=== PATIENT | female | born 1960 | race Hispanic/Latino ===

== ENCOUNTER 2017-11-21 14:34 | Outpatient (CLI) | payer OTHER ==
[~2017-11-21 14:34] MED LIST: Gadobenate Dimeglumine 529 MG/1 ML (20ML VIAL) ONE
--- NOTE | 2017-11-21 16:28 | MRI ---
EXAM: BRAIN MRI WITH AND WITHOUT CONTRAST 11/21/17 HISTORY: Skin paresthesia. COMPARISON: None. TECHNIQUE: Brain MRI is performed with and without intravenous gadolinium administration. Multisequential, multi planar imaging is performed. FINDINGS: No hemorrhage on the axial gradient echo sequence. No parenchymal hemorrhage. No extra-axial hematoma . No parenchymal mass, mass effect or midline shift. Age appropriate brain volume. Cortical sanders-whit e matter differentiation is preserved. Ventricles and sulci are patent and symmetric. There are T2 and FLAIR white matter hyperintensities, minimal in overall distribution suggesting health professor brannon small vessel ischemic change. The calvarium has a normal T1 marrow signal intensity. Midline brain parenchymal structures are unrem arkable. There is bilateral maxillary sinus and ethmoidal mucosal thickening. Mastoid air cells are adequately aerated. No pathologic enhancement of the brain parenchyma. Note is made of a small enhancing meningioma along the right parafalcine region measuring 0.6 cm. IMPRESSION: 1. Unremarkable pre and postcontrast brain MRI. Paranasal sinus disease as above. 2. Absent restricted diffusion. No acute infract. 3. Minimal T2 and FLAIR white matter hyperintensities, nonspecific. POS: [facility]
== END 2017-11-21 14:35 | disposition home or self-care (01) ==
LOC: SCSMRI 14:34
PROVIDERS: ATTEND Psychiatry & Neurology Neurology
DX: R20.2 Paresthesia of skin (principal)
CPT/HCPCS: 70553; A9579

== ENCOUNTER 2018-02-01 14:57 | Outpatient (CLI) | payer OTHER | END 2018-02-01 14:58 | disposition home or self-care (01) | LOC: BICMAMMO 14:57 | PROVIDERS: ATTEND Family Medicine | DX: N64.4 Mastodynia (principal); N64.52 Nipple discharge | CPT/HCPCS: G0279 ==

== ENCOUNTER 2018-05-02 13:48 | Outpatient (CLI) | payer OTHER | END 2018-05-02 13:49 | disposition home or self-care (01) | LOC: DTY/OP 13:48 | PROVIDERS: ATTEND Family Medicine | DX: E11.65 Type 2 diabetes mellitus with hyperglycemia (principal); E66.01 Morbid (severe) obesity due to excess calories; E55.9 Vitamin D deficiency, unspecified; E53.8 Deficiency of other specified B group vitamins; Z68.41 Body mass index [BMI] 40.0-44.9, adult | CPT/HCPCS: 97802 ==

== ENCOUNTER 2019-02-13 15:57 | Outpatient (CLI) | payer OTHER ==
--- NOTE | 2019-02-13 16:49 | MMO ---
Bilateral MAMMO Bilat Screen [facility]. CLINICAL HISTORY: Patient is 58 years old and is seen for screening. The patient has no family history of breast cancer. The patient has no personal history of cancer. VIEWS: The views performed were: bilateral craniocaudal with tomosynthesis and bilateral mediolateral oblique with tomosynthesis. FILMS COMPARED: The present examination has been compared to prior imaging studies performed at [facility] on 06/02/2009 and 02/12/2018. MAMMOGRAM FINDINGS: The breasts are almost entirely fat. There are stable benign appearing calcifications seen in both breasts. There are no suspicious masses, suspicious calcifications, or new areas of architectural distortion. IMPRESSION: THERE IS NO MAMMOGRAPHIC EVIDENCE OF MALIGNANCY. A ROUTINE FOLLOW-UP MAMMOGRAM IN 1 YEAR IS RECOMMENDED. THE RESULTS OF THIS EXAM WERE SENT TO THE PATIENT. ACR BI-RADS Category 2 - Benign finding MAMMOGRAPHY NOTE: 1. A negative mammogram report should not delay a biopsy if a dominant of clinically suspicious mass is present. 2. Approximately 10% to 15% of breast cancers are not detected by mammography. 3. Adenosis and dense breasts may obscure an underlying neoplasm.
== END 2019-02-13 15:58 | disposition home or self-care (01) ==
LOC: BICMAMMO 15:57
PROVIDERS: ATTEND Family Medicine
DX: Z12.31 Encounter for screening mammogram for malignant neoplasm of breast (principal)
CPT/HCPCS: 77063; 77067

== ENCOUNTER 2019-03-27 09:51 | Outpatient (CLI) | payer OTHER ==
--- NOTE | 2019-03-27 11:45 | MRI ---
BRAIN MRI WITH AND WITHOUT CONTRAST: Date: 03/27/2019 COMPARISON: 11/21/2017. HISTORY: Headaches. TECHNIQUE: Multisequence multiplanar MR imaging of the brain is obtained with and without contrast. FINDINGS: The diffusion weighted imaging demonstrates no evidence for acute infarction. The axial gradient echo imaging demonstrates no evidence for intracranial hemorrhage. There are multiple subcentimeter scattered foci of increased T2 and FLAIR signal within the periventr icular, deep, and subcortical white matter, similar when compared to the prior examination, nonspecific in nature. Arterial flow voids at the axial level of the skull base appear grossly unremarkable on the T2-weight ed imaging. The imaged paranasal sinuses and mastoid air cells demonstrate normal signal intensity. There is an extra-axial oval midline anterior 7 mm focus demonstrating decreased signal on gradient e cho imaging and increased signal on pre and postcontrast T1-weighted imaging. This could represent a small calcification or small calcified meningioma. IMPRESSION: Incidental findings as detailed above. No acute findings are seen. Transcribed Date/Time: 03/27/2019 12:06 PM
== END 2019-03-27 09:52 | disposition home or self-care (01) ==
LOC: SCSMRI 09:51
PROVIDERS: ATTEND Nurse Practitioner Acute Care
DX: R20.2 Paresthesia of skin (principal); R51 Headache
CPT/HCPCS: 70553

== ENCOUNTER 2019-10-27 09:02 | Outpatient (CLI) | payer OTHER ==
--- NOTE | 2019-10-27 09:47 | ULT ---
EXAM: US Abdominal CLINICAL HISTORY: Right kidney disease. Right upper quadrant pain.. COMPARISON: None. FINDINGS: Pancreas: The head of pancreas has a normal echotexture. The remainder the pancreas is obscured by b owel gas IVC: Visualized IVC has a normal caliber. Aorta: Visualized aorta has a normal caliber. Liver:Increased echogenicity of liver may be due to hepatic steatosis or hepatocellular disease. Limi verona evaluation for hepatic masses and intrahepatic biliary dilatation. Right hepatic lobe measures 16.3 cm. Gallbladder: Surgically absent Henry's sign:Not applicable CBD: Common bile diameter 0.7 cm Portal vein: Patent. Appropriate directional flow. Right kidney: Normal cortical echotexture. No hydronephrosis. Right kidney measuring 10.9 x 4.8 x 5. 7 cm in length. Left kidney: Normal cortical echotexture. No hydronephrosis . Left kidney measuring 10.5 x 4.8 x 5.0 cm in length Spleen: Normal echotexture IMPRESSION: 1. Increased echogenicity liver may be due to hepatic steatosis or hepatocellular disease. If there i s concern for hepatic masses, consider liver mass protocol CT or an abdomen MRI
== END 2019-10-27 09:03 | disposition home or self-care (01) ==
LOC: BICULT 09:02
PROVIDERS: ATTEND Family Medicine
DX: N18.3 Chronic kidney disease, stage 3 (moderate) (principal); R10.11 Right upper quadrant pain; R80.9 Proteinuria, unspecified; R93.2 Abnormal findings on diagnostic imaging of liver and biliary tract
CPT/HCPCS: 93975

== ENCOUNTER 2020-02-20 10:02 | Outpatient (CLI) | payer OTHER ==
--- NOTE | 2020-02-20 15:57 | MMO ---
Bilateral MAMMO Bilat Screen [facility]. CLINICAL HISTORY: Patient is 59 years old and is seen for screening. The patient has no family history of breast cancer. The patient has no personal history of cancer. VIEWS: The views performed were: bilateral craniocaudal with tomosynthesis; bilateral mediolateral oblique with tomosynthesis; and bilateral exaggerated craniocaudal. FILMS COMPARED: The present examination has been compared to prior imaging studies performed at [facility] on 06/02/2009, 02/12/2018 and 02/13/2019, and at [facility] on 04/11/2017. This study has been interpreted with the assistance of computer-aided detection. MAMMOGRAM FINDINGS: The breasts are almost entirely fat. There are stable benign appearing calcifications seen in both breasts. There are no suspicious masses, suspicious calcifications, or new areas of architectural distortion. IMPRESSION: THERE IS NO MAMMOGRAPHIC EVIDENCE OF MALIGNANCY. A ROUTINE FOLLOW-UP MAMMOGRAM IN 1 YEAR IS RECOMMENDED. THE RESULTS OF THIS EXAM WERE SENT TO THE PATIENT. ACR BI-RADS Category 2 - Benign finding MAMMOGRAPHY NOTE: 1. A negative mammogram report should not delay a biopsy if a dominant of clinically suspicious mass is present. 2. Approximately 10% to 15% of breast cancers are not detected by mammography. 3. Adenosis and dense breasts may obscure an underlying neoplasm. Reported by: CHARLES WARNER MD Electonically Signed: [id number]
== END 2020-02-20 10:03 | disposition home or self-care (01) ==
LOC: BICMAMMO 10:02
PROVIDERS: ATTEND Family Medicine
DX: Z12.31 Encounter for screening mammogram for malignant neoplasm of breast (principal)
CPT/HCPCS: 77063; 77067

== ENCOUNTER 2020-11-02 08:36 | Outpatient (CLI) | payer OTHER ==
--- NOTE | 2020-11-02 10:37 | ULT ---
LEFT BREAST ULTRASOUND: HISTORY: Palpable abnormality of the left breast at the 10 o'clock position. FINDINGS: Real-time imaging of this area after the patient pointed to the area of a palpable finding does not show any cystic or solid mass. IMPRESSION: Unremarkable left breast ultrasound. POS: OFF
== END 2020-11-02 08:37 | disposition home or self-care (01) ==
LOC: BICMAMMO 08:36
PROVIDERS: ATTEND Family Medicine
DX: N63.20 Unspecified lump in the left breast, unspecified quadrant (principal)

== ENCOUNTER → 2020-11-02 | Outpatient (CLI) | payer OTHER | LOC: BICMAMMO 12:38 | PROVIDERS: ATTEND Family Medicine | DX: N63.20 Unspecified lump in the left breast, unspecified quadrant (principal) | CPT/HCPCS: G0279 ==

== ENCOUNTER 2021-01-21 13:00 | Outpatient (CLI) | payer OTHER | END 2021-01-21 13:01 | disposition home or self-care (01) | LOC: BICRAD 13:00 | PROVIDERS: ATTEND Family Medicine | DX: M25.561 Pain in right knee (principal) ==

== ENCOUNTER 2022-06-06 08:51 | Outpatient (CLI) | payer OTHER | END 2022-06-06 08:52 | disposition home or self-care (01) | LOC: BICMAMMO 08:51 | PROVIDERS: ATTEND Family Medicine | DX: Z12.31 Encounter for screening mammogram for malignant neoplasm of breast (principal); Z80.3 Family history of malignant neoplasm of breast; N63.20 Unspecified lump in the left breast, unspecified quadrant | CPT/HCPCS: 77063; 77067 ==

== ENCOUNTER 2022-06-15 10:07 | Outpatient (CLI) | payer OTHER | END 2022-06-15 10:08 | disposition home or self-care (01) | LOC: BICMAMMO 10:07 | PROVIDERS: ATTEND Family Medicine | DX: N63.25 Unspecified lump in the left breast, overlapping quadrants (principal) | CPT/HCPCS: G0279 ==

== ENCOUNTER 2023-07-26 08:38 | Outpatient (CLI) | payer OTHER | END 2023-07-26 08:39 | disposition home or self-care (01) | LOC: BICMAMMO 08:38 | PROVIDERS: ATTEND Nurse Practitioner Family | DX: Z12.31 Encounter for screening mammogram for malignant neoplasm of breast (principal); Z80.3 Family history of malignant neoplasm of breast | CPT/HCPCS: 77063; 77067 ==

== ENCOUNTER 2023-08-19 10:28 | Emergency (ER) | payer OTHER ==
[2023-08-19] MEDS ORDERED: Ketorolac Tromethamine 30 MG/ML VIAL ONE (11:04)
== END 2023-08-19 11:32 | disposition home or self-care (01) ==
LOC: ERS 10:28
DX: M79.671 Pain in right foot (principal); E11.9 Type 2 diabetes mellitus without complications; I10 Essential (primary) hypertension; E78.5 Hyperlipidemia, unspecified; Z79.899 Other long term (current) drug therapy; Z79.82 Long term (current) use of aspirin; Z79.4 Long term (current) use of insulin; Z79.85 Long-term (current) use of injectable non-insulin antidiabetic drugs
CPT/HCPCS: 96372; J1885

== ENCOUNTER 2023-12-26 11:13 | Inpatient (IN) | payer OTHER ==
[2023-12-26 11:35] LABS: #Basophils 0.03 10x3/uL (0.0-0.2); %Basophils 0.3 % (0.0-1.0); %Eosinophils 2.5 % (0.0-10.0); %Lymphocytes 14.6 % (21.0-51.0); %Monocytes 12.6 % (0.0-10.0); %Neutrophils 69.6 % (42.0-75.0); Hematocrit 29.2 % (36.0-47.0); Hemoglobin 9.7 g/dL (12.0-16.0); Mean Corpuscular HGB CONC 33.2 g/dL (32.0-36.0); Mean Corpuscular Volume 87.4 fL (78.0-98.0); Mean Platelet Volume 10.6 fL (7.4-10.4); Platelet Count 193 10x3/uL (130-400); RBC Distribution Width 14.7 % (11.5-14.5); Red Blood Cell (RBC) Count 3.34 mill/uL (4.20-5.40)
[2023-12-26 12:14] LABS: Anion Gap 13 mmol/L (10-20); Globulin 4.1 g/dL (2.4-3.5)
[2023-12-26 12:19] LABS: ALT (SGPT) 27 U/L (8-55); AST (SGOT) 18 U/L (5-34); Albumin 2.7 g/dL (3.4-4.8); Alkaline Phosphatase 86 U/L (40-110); BUN (Urea Nitrogen) 95 mg/dL (9.8-20.1); Bilirubin, Total 0.5 mg/dL (0.2-1.2); Calc. Creatinine Clearance 0 mL/min (70-130); Calcium 8.8 mg/dL (7.8-10.44); Carbon Dioxide 21 mmol/L (23-31); Chloride 106 mmol/L (98-107); Estimated GFR 18; Glucose 102 mg/dL (80-115); Magnesium 2.4 mg/dL (1.6-2.6); Potassium 4.3 mmol/L (3.5-5.1); Protein, Total 6.8 g/dL (5.8-8.1); Sodium 136 mmol/L (136-145)
[2023-12-26 12:33] LABS: Troponin I 0.044 ng/mL (< 0.028)
[2023-12-26] MEDS ORDERED: Furosemide 40 MG (4 mL) VIAL ONE (12:57)
[2023-12-26] MEDS ORDERED: Enoxaparin 30 MG (0.3 mL) SYRINGE ONE (12:57)
[2023-12-26] MEDS ORDERED: Nitroglycerin 2% Ointment 1 INCH/1 GM Packet ONE (12:57)
[2023-12-26] MEDS ORDERED: Enoxaparin 100 MG (1 mL) SYRINGE ONE (12:57)
[2023-12-26] MEDS ORDERED: Dextrose 50% Abboject 50 ML SYRINGE SLOW IVP PRN (13:30)
[2023-12-26] MEDS ORDERED: Dextrose 5% in Water 1,000 ML IV PRN (13:30)
[2023-12-26] MEDS ORDERED: Glucagon 1 MG/ML KIT IM PRN (13:30)
[2023-12-26] MEDS: Acetaminophen 325 MG TAB PO PRN (16:24)
[2023-12-26] MEDS: Gabapentin 300 MG CAP PO SCH (21:11)
[2023-12-26] MEDS: Atorvastatin Calcium 40 MG TAB PO SCH (21:11)
[2023-12-26] MEDS: Nortriptyline 10 MG CAP PO SCH (21:11)
[2023-12-26] MEDS: Insulin Glargine 30 UNITS/0.3 ML VIAL SC SCH (21:12)
[2023-12-27 06:55] LABS: #Basophils Less than 0.03 10x3/uL (0.0-0.2); %Basophils 0.3 % (0.0-1.0); %Eosinophils 4.6 % (0.0-10.0); %Lymphocytes 17.2 % (21.0-51.0); %Monocytes 13.1 % (0.0-10.0); %Neutrophils 64.5 % (42.0-75.0); Hemoglobin 8.4 g/dL (12.0-16.0); Mean Corpuscular HGB CONC 32.3 g/dL (32.0-36.0); Mean Corpuscular Hemoglobin 29.3 pg (27.0-31.0); Mean Corpuscular Volume 90.6 fL (78.0-98.0); Mean Platelet Volume 10.7 fL (7.4-10.4); Platelet Count 183 10x3/uL (130-400); RBC Distribution Width 14.6 % (11.5-14.5); Red Blood Cell (RBC) Count 2.87 mill/uL (4.20-5.40)
[2023-12-27 07:10] LABS: Anion Gap 14 mmol/L (10-20)
[2023-12-27 07:13] LABS: BUN (Urea Nitrogen) 91 mg/dL (9.8-20.1); Calc. Creatinine Clearance 39 mL/min (70-130); Calcium 8.7 mg/dL (7.8-10.44); Carbon Dioxide 21 mmol/L (23-31); Chloride 109 mmol/L (98-107); Estimated GFR 17; Glucose 74 mg/dL (80-115); Potassium 4.5 mmol/L (3.5-5.1); Sodium 139 mmol/L (136-145)
[2023-12-27] MEDS: Allopurinol 100 MG TAB PO SCH (08:15)
[2023-12-27] MEDS: Ferrous Sulfate 325 MG TAB PO SCH (08:16)
[2023-12-27] MEDS: Famotidine 20 MG TAB PO SCH (08:16)
[2023-12-27] MEDS: Aspirin 81 mg Enteric Coated Tablet PO SCH (08:16)
[2023-12-27] MEDS: Cholecalciferol 1,000 UNITS (25 MCG) TAB PO SCH (08:16)
[2023-12-27] MEDS: Lisinopril 20 MG TAB PO SCH (08:17)
[2023-12-27] MEDS: Empagliflozin 25 MG TAB PO SCH (08:17)
[2023-12-27] MEDS: Furosemide 40 MG (4 mL) VIAL SLOW IVP SCH (08:17)
[2023-12-27 11:27] LABS: Hematocrit 26.6 % (36.0-47.0); Hemoglobin 8.8 g/dL (12.0-16.0); Platelet Count 186 10x3/uL (130-400)
[2023-12-27 12:02] LABS: Troponin I 0.036 ng/mL (< 0.028)
[2023-12-27] MEDS: Heparin 10,000 UNITS/ 10 ML VIAL SLOW IVP SCH (12:26)
[2023-12-27] MEDS: Heparin 25,000 units/D5W 500 ML IVPB SCH (12:28)
[2023-12-27] MEDS: HumaLOG 300 UNITS/3 ML VIAL SC PRN (12:55)
[2023-12-27 21:42] LABS: PTT Greater than 250.0 sec (22.9-36.1)
[2023-12-28 04:26] LABS: #Basophils 0.03 10x3/uL (0.0-0.2); %Basophils 0.4 % (0.0-1.0); %Eosinophils 3.5 % (0.0-10.0); %Lymphocytes 20.3 % (21.0-51.0); %Monocytes 12.1 % (0.0-10.0); %Neutrophils 63.3 % (42.0-75.0); Hematocrit 25.2 % (36.0-47.0); Hemoglobin 8.5 g/dL (12.0-16.0); Mean Corpuscular HGB CONC 33.7 g/dL (32.0-36.0); Mean Corpuscular Hemoglobin 29.6 pg (27.0-31.0); Mean Corpuscular Volume 87.8 fL (78.0-98.0); Mean Platelet Volume 10.3 fL (7.4-10.4); Platelet Count 175 10x3/uL (130-400); RBC Distribution Width 14.4 % (11.5-14.5); Red Blood Cell (RBC) Count 2.87 mill/uL (4.20-5.40)
[2023-12-28 04:46] LABS: Anion Gap 13 mmol/L (10-20)
[2023-12-28 04:49] LABS: BUN (Urea Nitrogen) 85 mg/dL (9.8-20.1); Calc. Creatinine Clearance 40 mL/min (70-130); Calcium 8.6 mg/dL (7.8-10.44); Carbon Dioxide 23 mmol/L (23-31); Chloride 108 mmol/L (98-107); Estimated GFR 18; Glucose 100 mg/dL (80-115); Potassium 4.3 mmol/L (3.5-5.1); Sodium 140 mmol/L (136-145)
[2023-12-28] MEDS: Ipratropium/Albuterol 3 ML NEB NEB SCH (15:05)
[2023-12-28 17:03] LABS: Albumin 2.5 g/dL (3.4-4.8); Globulin 3.7 g/dL (2.4-3.5); Protein, Total 6.2 g/dL (5.8-8.1)
[2023-12-28 18:22] LABS: Bilirubin Negative (Negative); Blood, Urine 2+ (Negative); Clarity Turbid (Clear); Glucose, Urine (Dipstick) 300 mg/dL (Negative); Ketone, Urine Negative (Negative); Leukocyte 25 Leu/uL (Negative); Nitrite Negative (Negative); Protein, Urine (Dipstick) 300 mg/dL (Neg-Trace); Urobilinogen Normal mg/dL (Less than 2); pH, Urine 5.5 (5.0-9.0)
[2023-12-28 18:25] LABS: Bacteria/HPF 1+ HPF (None Seen)
[2023-12-28 18:36] LABS: Creatinine, Urine 41.44 mg/dL (47-110)
[2023-12-29 06:13] LABS: Anion Gap 14 mmol/L (10-20)
[2023-12-29 06:16] LABS: BUN (Urea Nitrogen) 83 mg/dL (9.8-20.1); Calc. Creatinine Clearance 37 mL/min (70-130); Calcium 8.8 mg/dL (7.8-10.44); Carbon Dioxide 24 mmol/L (23-31); Chloride 109 mmol/L (98-107); Estimated GFR 16; Glucose 113 mg/dL (80-115); Potassium 4.5 mmol/L (3.5-5.1); Sodium 142 mmol/L (136-145)
[2023-12-29] MEDS: methylPREDNISolone Sod Succ/PF 125 MG/2 ML VIAL IVP SCH (13:25)
[2023-12-29] MEDS: Ipratropium/Albuterol 3 ML NEB NEB PRN (15:29)
[2023-12-30 06:19] LABS: Anion Gap 16 mmol/L (10-20)
[2023-12-30 06:21] LABS: BUN (Urea Nitrogen) 90 mg/dL (9.8-20.1); Calc. Creatinine Clearance 34 mL/min (70-130); Calcium 8.6 mg/dL (7.8-10.44); Carbon Dioxide 22 mmol/L (23-31); Chloride 107 mmol/L (98-107); Estimated GFR 15; Glucose 257 mg/dL (80-115); Potassium 4.5 mmol/L (3.5-5.1); Sodium 140 mmol/L (136-145)
[2023-12-30] MEDS: Albumin 25% 25 GM (100 mL) BOT IVPB SCH ×2 (09:30→16:06)
[2023-12-30] MEDS: Polyethylene Glycol 3350 17 GM Packet PO PRN (09:35)
[2023-12-31 05:12] LABS: Anion Gap 17 mmol/L (10-20)
[2023-12-31 05:15] LABS: BUN (Urea Nitrogen) 103 mg/dL (9.8-20.1); Calc. Creatinine Clearance 35 mL/min (70-130); Calcium 8.9 mg/dL (7.8-10.44); Carbon Dioxide 23 mmol/L (23-31); Chloride 106 mmol/L (98-107); Estimated GFR 16; Glucose 158 mg/dL (80-115); Potassium 4.2 mmol/L (3.5-5.1); Sodium 142 mmol/L (136-145)
[2023-12-31] MEDS: Furosemide 40 MG TAB PO SCH (09:44)
[2023-12-31 12:39] LABS: Bacteria/HPF 2+ HPF (None Seen); Bilirubin Negative (Negative); Blood, Urine 2+ (Negative); Clarity Turbid (Clear); Glucose, Urine (Dipstick) 300 mg/dL (Negative); Ketone, Urine Negative (Negative); Leukocyte 25 Leu/uL (Negative); Nitrite Negative (Negative); Protein, Urine (Dipstick) 300 mg/dL (Neg-Trace); Specific Gravity, Urine 1.018 (1.002-1.036); Urobilinogen Normal mg/dL (Less than 2)
[2023-12-31 13:18] LABS: Creatinine, Urine 84.92 mg/dL (47-110)
[2023-12-31] MEDS: hydrALAZINE 20 MG/ML VIAL SLOW IVP SCH (17:59)
[2023-12-31] MEDS: NIFEdipine XL 60 MG ER.TAB PO SCH (21:14)
[2024-01-01 04:37] LABS: Anion Gap 16 mmol/L (10-20)
[2024-01-01 04:40] LABS: BUN (Urea Nitrogen) 106 mg/dL (9.8-20.1); Calc. Creatinine Clearance 34 mL/min (70-130); Calcium 8.7 mg/dL (7.8-10.44); Carbon Dioxide 24 mmol/L (23-31); Chloride 107 mmol/L (98-107); Estimated GFR 15; Glucose 133 mg/dL (80-115); Potassium 4.2 mmol/L (3.5-5.1); Sodium 143 mmol/L (136-145)
[2024-01-01 12:15] LABS: ANA Symphony (Qualitative) Negative (Negative); ANA Symphony (Quantitative) 0.2 Ratio (< 0.7 Negative); CCP IgG Antibody 0.8 EliAU/mL (<7 Negative); Rheumatoid Factor IgM Antibody 0.8 IU/mL (<3.5 Negative); dsDNA IgG Antibody 1.1 IU/mL (<10 Negative)
[2024-01-01] MEDS: Cefepime 1 GM in Sodium Chloride 0.9% 100 ML IVPB SCH (12:15)
[2024-01-01] MEDS: metroNIDAZOLE 500 MG TAB PO SCH (16:37)
[2024-01-01] MEDS: Ondansetron PF 4 MG/2 ML Vial IVP PRN (23:31)
[2024-01-02 05:46] LABS: Hematocrit 25.5 % (36.0-47.0); Hemoglobin 7.9 g/dL (12.0-16.0); Mean Corpuscular Hemoglobin 28.5 pg (27.0-31.0); Mean Corpuscular Volume 92.1 fL (78.0-98.0); Mean Platelet Volume 10.9 fL (7.4-10.4); Platelet Count 260 10x3/uL (130-400); Red Blood Cell (RBC) Count 2.77 mill/uL (4.20-5.40)
[2024-01-02 06:04] LABS: Anion Gap 17 mmol/L (10-20)
[2024-01-02 06:06] LABS: BUN (Urea Nitrogen) 120 mg/dL (9.8-20.1); Calc. Creatinine Clearance 25 mL/min (70-130); Calcium 8.7 mg/dL (7.8-10.44); Carbon Dioxide 24 mmol/L (23-31); Chloride 106 mmol/L (98-107); Estimated GFR 10; Glucose 181 mg/dL (80-115); Potassium 4.7 mmol/L (3.5-5.1); Sodium 142 mmol/L (136-145)
[2024-01-02] MEDS: Famotidine 20 MG TAB PO SCH (08:22)
[2024-01-02 15:14] LABS: Cytoplasmic (C-ANCA) <1:20 titer (Neg:<1:20); Perinuclear (P-ANCA) <1:20 titer (Neg:<1:20)
[2024-01-02] MEDS: Docusate 100 MG CAP PO PRN (20:46)
[2024-01-03 05:29] LABS: #Basophils 0.03 10x3/uL (0.0-0.2); %Basophils 0.4 % (0.0-1.0); %Eosinophils 6.5 % (0.0-10.0); %Lymphocytes 19.6 % (21.0-51.0); %Monocytes 9.3 % (0.0-10.0); %Neutrophils 63.9 % (42.0-75.0); Hematocrit 24.3 % (36.0-47.0); Hemoglobin 7.7 g/dL (12.0-16.0); Mean Corpuscular HGB CONC 31.7 g/dL (32.0-36.0); Mean Corpuscular Hemoglobin 29.2 pg (27.0-31.0); Mean Platelet Volume 10.8 fL (7.4-10.4); Platelet Count 288 10x3/uL (130-400); RBC Distribution Width 14.9 % (11.5-14.5); Red Blood Cell (RBC) Count 2.64 mill/uL (4.20-5.40)
[2024-01-03 05:54] LABS: Anion Gap 19 mmol/L (10-20)
[2024-01-03 05:56] LABS: BUN (Urea Nitrogen) 122 mg/dL (9.8-20.1); Calc. Creatinine Clearance 21 mL/min (70-130); Calcium 9.1 mg/dL (7.8-10.44); Carbon Dioxide 22 mmol/L (23-31); Chloride 107 mmol/L (98-107); Estimated GFR 8; Glucose 178 mg/dL (80-115); Potassium 4.9 mmol/L (3.5-5.1); Sodium 143 mmol/L (136-145)
[2024-01-03] MEDS: EPOETIN ALFA-EPBX (ESRD) 10,000 UNITS/ML VIAL SC SCH (10:30)
[2024-01-04 05:29] LABS: #Basophils Less than 0.03 10x3/uL (0.0-0.2); %Basophils 0.3 % (0.0-1.0); %Eosinophils 5.9 % (0.0-10.0); %Monocytes 10.2 % (0.0-10.0); %Neutrophils 65.2 % (42.0-75.0); Hematocrit 24.9 % (36.0-47.0); Hemoglobin 7.7 g/dL (12.0-16.0); Mean Corpuscular HGB CONC 30.9 g/dL (32.0-36.0); Mean Corpuscular Volume 90.5 fL (78.0-98.0); Mean Platelet Volume 11.2 fL (7.4-10.4); Platelet Count 328 10x3/uL (130-400); RBC Distribution Width 14.9 % (11.5-14.5); Red Blood Cell (RBC) Count 2.75 mill/uL (4.20-5.40)
[2024-01-04 05:43] LABS: Anion Gap 17 mmol/L (10-20)
[2024-01-04 06:09] LABS: BUN (Urea Nitrogen) 121 mg/dL (9.8-20.1); Calc. Creatinine Clearance 21 mL/min (70-130); Carbon Dioxide 22 mmol/L (23-31); Chloride 107 mmol/L (98-107); Estimated GFR 8; Glucose 211 mg/dL (80-115); Potassium 4.8 mmol/L (3.5-5.1); Sodium 141 mmol/L (136-145)
[2024-01-04] MEDS: Tuberculin PPD 0.1 ML SYRINGE (10 TEST VIAL) I-DERMAL SCH (21:44)
[2024-01-05 05:42] LABS: #Basophils 0.03 10x3/uL (0.0-0.2); %Basophils 0.4 % (0.0-1.0); %Eosinophils 6.3 % (0.0-10.0); %Lymphocytes 15.5 % (21.0-51.0); %Monocytes 10.4 % (0.0-10.0); %Neutrophils 66.8 % (42.0-75.0); Hematocrit 25.2 % (36.0-47.0); Hemoglobin 7.9 g/dL (12.0-16.0); Mean Corpuscular HGB CONC 31.3 g/dL (32.0-36.0); Mean Corpuscular Hemoglobin 29.3 pg (27.0-31.0); Mean Corpuscular Volume 93.3 fL (78.0-98.0); Mean Platelet Volume 10.8 fL (7.4-10.4); Platelet Count 365 10x3/uL (130-400); RBC Distribution Width 15.1 % (11.5-14.5)
[2024-01-05 05:58] LABS: Anion Gap 20 mmol/L (10-20)
[2024-01-05 06:07] LABS: Calc. Creatinine Clearance 23 mL/min (70-130); Calcium 8.9 mg/dL (7.8-10.44); Carbon Dioxide 20 mmol/L (23-31); Chloride 107 mmol/L (98-107); Estimated GFR 9; Glucose 165 mg/dL (80-115); Potassium 4.6 mmol/L (3.5-5.1); Sodium 142 mmol/L (136-145)
[2024-01-05 06:10] LABS: BUN (Urea Nitrogen) 129 mg/dL (9.8-20.1)
[2024-01-05 07:18] LABS: Hep B Surface AG-Rflx Sendout Negative (Negative); Hepatitis B Core Total Negative (Negative); Hepatitis B Surface AB-Sendout Reactive (.)
[2024-01-05] MEDS ORDERED: Heparin 10,000 UNITS/ 10 ML VIAL ONE (08:12)
[2024-01-05] MEDS: Morphine 2 MG/ML VIAL SLOW IVP SCH (20:28)
[2024-01-06 06:21] LABS: #Basophils Less than 0.03 10x3/uL (0.0-0.2); %Basophils 0.3 % (0.0-1.0); %Eosinophils 6.2 % (0.0-10.0); %Lymphocytes 16.6 % (21.0-51.0); %Monocytes 11.9 % (0.0-10.0); %Neutrophils 64.2 % (42.0-75.0); Hematocrit 24.1 % (36.0-47.0); Hemoglobin 7.6 g/dL (12.0-16.0); Mean Corpuscular HGB CONC 31.5 g/dL (32.0-36.0); Mean Platelet Volume 9.9 fL (7.4-10.4); Platelet Count 384 10x3/uL (130-400); RBC Distribution Width 15.5 % (11.5-14.5); Red Blood Cell (RBC) Count 2.62 mill/uL (4.20-5.40)
[2024-01-06 07:00] LABS: Anion Gap 17 mmol/L (10-20)
[2024-01-06 07:03] LABS: BUN (Urea Nitrogen) 110 mg/dL (9.8-20.1); Calc. Creatinine Clearance 27 mL/min (70-130); Calcium 8.8 mg/dL (7.8-10.44); Carbon Dioxide 21 mmol/L (23-31); Chloride 108 mmol/L (98-107); Estimated GFR 11; Glucose 116 mg/dL (80-115); Potassium 4.3 mmol/L (3.5-5.1); Sodium 142 mmol/L (136-145)
[2024-01-06] MEDS ORDERED: Heparin 10,000 UNITS/ 10 ML VIAL ONE (08:10)
[2024-01-06] MEDS: Polyethylene Glycol 3350 17 GM Packet PO PRN (13:50)
[2024-01-06] MEDS ORDERED: Glycerin Adult Supp. (24 ct jar) PR PRN (15:20)
[2024-01-06] MEDS: Polyethylene Glycol 3350 17 GM Packet PO SCH (15:34)
[2024-01-07 06:36] LABS: #Basophils 0.03 10x3/uL (0.0-0.2); %Basophils 0.4 % (0.0-1.0); %Eosinophils 6.3 % (0.0-10.0); %Lymphocytes 17.3 % (21.0-51.0); %Monocytes 13.7 % (0.0-10.0); %Neutrophils 60.8 % (42.0-75.0); Hemoglobin 8.3 g/dL (12.0-16.0); Mean Corpuscular HGB CONC 31.9 g/dL (32.0-36.0); Mean Corpuscular Hemoglobin 28.5 pg (27.0-31.0); Mean Corpuscular Volume 89.3 fL (78.0-98.0); Mean Platelet Volume 9.5 fL (7.4-10.4); Platelet Count 405 10x3/uL (130-400); RBC Distribution Width 15.6 % (11.5-14.5); Red Blood Cell (RBC) Count 2.91 mill/uL (4.20-5.40)
[2024-01-07 06:48] LABS: Anion Gap 13 mmol/L (10-20)
[2024-01-07 06:51] LABS: BUN (Urea Nitrogen) 65 mg/dL (9.8-20.1); Calc. Creatinine Clearance 38 mL/min (70-130); Calcium 8.8 mg/dL (7.8-10.44); Carbon Dioxide 26 mmol/L (23-31); Chloride 106 mmol/L (98-107); Estimated GFR 17; Glucose 120 mg/dL (80-115); Potassium 4.2 mmol/L (3.5-5.1); Sodium 141 mmol/L (136-145)
[2024-01-07] MEDS ORDERED: Heparin 10,000 UNITS/ 10 ML VIAL ONE ×2 (11:12→14:42)
[2024-01-07] MEDS ORDERED: Cefepime 1 GM VIAL ONE (12:00)
[2024-01-07] MEDS ORDERED: Sodium Chloride 0.9% 100 ML ONE (12:00)
[2024-01-07] MEDS ORDERED: Lidocaine 2% PF 5 ML VIAL ONE (14:42)
[2024-01-07] MEDS ORDERED: EPINEPHrine 1 MG/ML VIAL ONE (14:42)
[2024-01-07] MEDS ORDERED: Bupivacaine PF 0.5% 30 ML VIAL ONE (14:43)
[2024-01-07] MEDS ORDERED: Ketamine In 0.9 % NaCl 50 MG/5 ML SYRINGE ONE (15:26)
[2024-01-07] MEDS ORDERED: Midazolam HCl 2 mg/2 ml Vial ONE (15:26)
[2024-01-07] MEDS: Polyethylene Glycol 3350 17 GM Packet PO SCH (16:28)
[2024-01-07] MEDS: READ PPD TEST SITE PO SCH (16:28)
[2024-01-08 00:34] LABS: HBSAB Concentration 25.97 mIU/mL; Hep B Core Total Ab NONREACTIVE (NonReactive); Hep B Core Total Index 0.23 S/CO (0-0.79); Hep B Surf AB REACTIVE (NonReactive); Hep B Surf Ag NONREACTIVE S/CO (NonReactive); Hep C IgG Ab NONREACTIVE S/CO (NonReactive); Hep C Index 0.11 S/CO (0-0.79)
[2024-01-08 06:52] LABS: #Basophils 0.03 10x3/uL (0.0-0.2); %Basophils 0.4 % (0.0-1.0); %Eosinophils 3.7 % (0.0-10.0); %Monocytes 12.1 % (0.0-10.0); %Neutrophils 66.5 % (42.0-75.0); Hematocrit 25.6 % (36.0-47.0); Hemoglobin 8.2 g/dL (12.0-16.0); Mean Corpuscular Hemoglobin 29.3 pg (27.0-31.0); Mean Corpuscular Volume 91.4 fL (78.0-98.0); Mean Platelet Volume 9.9 fL (7.4-10.4); Platelet Count 431 10x3/uL (130-400); RBC Distribution Width 15.7 % (11.5-14.5)
[2024-01-08 07:04] LABS: Anion Gap 11 mmol/L (10-20)
[2024-01-08 07:06] LABS: BUN (Urea Nitrogen) 34 mg/dL (9.8-20.1); Calc. Creatinine Clearance 50 mL/min (70-130); Calcium 8.6 mg/dL (7.8-10.44); Carbon Dioxide 27 mmol/L (23-31); Chloride 101 mmol/L (98-107); Estimated GFR 24; Glucose 102 mg/dL (80-115); Potassium 3.6 mmol/L (3.5-5.1); Sodium 135 mmol/L (136-145)
[2024-01-08] MEDS ORDERED: Heparin 10,000 UNITS/ 10 ML VIAL ONE (11:05)
[2024-01-08] MEDS: NIFEdipine XL 60 MG ER.TAB PO SCH (13:21)
[2024-01-08] MEDS: Cefdinir 300 MG CAP PO SCH (21:15)
[2024-01-09 03:53] LABS: #Basophils 0.04 10x3/uL (0.0-0.2); %Basophils 0.5 % (0.0-1.0); %Eosinophils 3.7 % (0.0-10.0); %Lymphocytes 17.3 % (21.0-51.0); %Monocytes 14.3 % (0.0-10.0); %Neutrophils 62.3 % (42.0-75.0); Hematocrit 26.7 % (36.0-47.0); Hemoglobin 8.4 g/dL (12.0-16.0); Mean Corpuscular HGB CONC 31.5 g/dL (32.0-36.0); Mean Corpuscular Volume 92.1 fL (78.0-98.0); Mean Platelet Volume 9.8 fL (7.4-10.4); Platelet Count 426 10x3/uL (130-400); RBC Distribution Width 15.7 % (11.5-14.5)
[2024-01-09 04:08] LABS: Anion Gap 12 mmol/L (10-20); BUN (Urea Nitrogen) 17 mg/dL (9.8-20.1); Calc. Creatinine Clearance 58 mL/min (70-130); Calcium 8.7 mg/dL (7.8-10.44); Carbon Dioxide 28 mmol/L (23-31); Chloride 100 mmol/L (98-107); Estimated GFR 28; Glucose 106 mg/dL (80-115); Potassium 3.7 mmol/L (3.5-5.1); Sodium 136 mmol/L (136-145)
[2024-01-10 03:30] LABS: #Basophils 0.07 10x3/uL (0.0-0.2); %Basophils 0.8 % (0.0-1.0); %Eosinophils 4.4 % (0.0-10.0); %Lymphocytes 20.7 % (21.0-51.0); %Monocytes 13.6 % (0.0-10.0); Hematocrit 27.6 % (36.0-47.0); Hemoglobin 8.7 g/dL (12.0-16.0); Mean Corpuscular HGB CONC 31.5 g/dL (32.0-36.0); Mean Corpuscular Hemoglobin 28.5 pg (27.0-31.0); Mean Corpuscular Volume 90.5 fL (78.0-98.0); Mean Platelet Volume 9.3 fL (7.4-10.4); Platelet Count 381 10x3/uL (130-400); RBC Distribution Width 15.9 % (11.5-14.5); Red Blood Cell (RBC) Count 3.05 mill/uL (4.20-5.40)
[2024-01-10 03:49] LABS: Anion Gap 13 mmol/L (10-20); BUN (Urea Nitrogen) 22 mg/dL (9.8-20.1); Calc. Creatinine Clearance 37 mL/min (70-130); Calcium 8.6 mg/dL (7.8-10.44); Carbon Dioxide 27 mmol/L (23-31); Chloride 104 mmol/L (98-107); Estimated GFR 17; Glucose 109 mg/dL (80-115); Potassium 3.8 mmol/L (3.5-5.1); Sodium 140 mmol/L (136-145)
[2024-01-10] MEDS ORDERED: Heparin 10,000 UNITS/ 10 ML VIAL ONE (09:56)
[2024-01-11 05:54] LABS: #Basophils 0.03 10x3/uL (0.0-0.2); %Basophils 0.3 % (0.0-1.0); %Eosinophils 2.4 % (0.0-10.0); %Lymphocytes 14.3 % (21.0-51.0); %Monocytes 9.5 % (0.0-10.0); %Neutrophils 72.8 % (42.0-75.0); Hemoglobin 9.4 g/dL (12.0-16.0); Mean Corpuscular HGB CONC 31.3 g/dL (32.0-36.0); Mean Corpuscular Hemoglobin 29.2 pg (27.0-31.0); Mean Corpuscular Volume 93.2 fL (78.0-98.0); Mean Platelet Volume 9.5 fL (7.4-10.4); Platelet Count 401 10x3/uL (130-400); RBC Distribution Width 15.5 % (11.5-14.5); Red Blood Cell (RBC) Count 3.22 mill/uL (4.20-5.40)
[2024-01-11 06:19] LABS: Anion Gap 12 mmol/L (10-20); BUN (Urea Nitrogen) 13 mg/dL (9.8-20.1); Calc. Creatinine Clearance 42 mL/min (70-130); Carbon Dioxide 29 mmol/L (23-31); Chloride 98 mmol/L (98-107); Estimated GFR 20; Glucose 123 mg/dL (80-115); Potassium 3.9 mmol/L (3.5-5.1); Sodium 135 mmol/L (136-145)
[2024-01-11] MEDS ORDERED: Heparin 10,000 UNITS/ 10 ML VIAL ONE (09:02)
[2024-01-11 12:23] VITALS: BMI 50.8
[2024-01-12 06:23] LABS: #Basophils 0.04 10x3/uL (0.0-0.2); %Basophils 0.3 % (0.0-1.0); %Eosinophils 1.7 % (0.0-10.0); %Lymphocytes 12.7 % (21.0-51.0); %Monocytes 9.2 % (0.0-10.0); %Neutrophils 75.5 % (42.0-75.0); Hematocrit 29.6 % (36.0-47.0); Hemoglobin 9.5 g/dL (12.0-16.0); Mean Corpuscular HGB CONC 32.1 g/dL (32.0-36.0); Mean Corpuscular Hemoglobin 29.4 pg (27.0-31.0); Mean Corpuscular Volume 91.6 fL (78.0-98.0); Mean Platelet Volume 9.5 fL (7.4-10.4); Platelet Count 365 10x3/uL (130-400); RBC Distribution Width 15.6 % (11.5-14.5); Red Blood Cell (RBC) Count 3.23 mill/uL (4.20-5.40)
[2024-01-12 06:55] LABS: Anion Gap 15 mmol/L (10-20); BUN (Urea Nitrogen) 23 mg/dL (9.8-20.1); Calc. Creatinine Clearance 28 mL/min (70-130); Carbon Dioxide 24 mmol/L (23-31); Chloride 100 mmol/L (98-107); Estimated GFR 12; Glucose 119 mg/dL (80-115); Potassium 4.1 mmol/L (3.5-5.1); Sodium 135 mmol/L (136-145)
[2024-01-12] MEDS: Colchicine 0.3 MG TAB PO SCH (11:08)
[2024-01-12 16:36] VITALS: BP 132/64; TEMP 98.1
== END 2024-01-12 16:58 | disposition home or self-care (01) | DRG 280 ==
LOC: ERS 11:13 → 2NO 13:27
PROVIDERS: ADMIT Internal Medicine; ATTEND Hospitalist
PROC: 30233J1 Transfusion of Nonautologous Serum Albumin into Peripheral Vein, Percutaneous Approach (ICD-10-PCS; 2023-12-30)
PROC: 02HV33Z Insertion of Infusion Device into Superior Vena Cava, Percutaneous Approach (ICD-10-PCS; principal; 2024-01-05)
PROC: 5A1D70Z Performance of Urinary Filtration, Intermittent, Less than 6 Hours Per Day (ICD-10-PCS; 2024-01-05)
PROC: 5A1D70Z Performance of Urinary Filtration, Intermittent, Less than 6 Hours Per Day (ICD-10-PCS; 2024-01-05)
PROC: 5A1D70Z Performance of Urinary Filtration, Intermittent, Less than 6 Hours Per Day (ICD-10-PCS; 2024-01-05)
PROC: 0JH63XZ Insertion of Tunneled Vascular Access Device into Chest Subcutaneous Tissue and Fascia, Percutaneous Approach (ICD-10-PCS; 2024-01-07)
PROC: 02HV33Z Insertion of Infusion Device into Superior Vena Cava, Percutaneous Approach (ICD-10-PCS; 2024-01-07)
PROC: 06PYX3Z Removal of Infusion Device from Lower Vein, External Approach (ICD-10-PCS; 2024-01-07)
DX: I13.2 Hypertensive heart and chronic kidney disease with heart failure and with stage 5 chronic kidney disease, or end stage renal disease (principal); I50.31 Acute diastolic (congestive) heart failure; I21.A1 Myocardial infarction type 2; J18.9 Pneumonia, unspecified organism; J96.01 Acute respiratory failure with hypoxia; N17.0 Acute kidney failure with tubular necrosis; N18.6 End stage renal disease; Z68.43 Body mass index [BMI] 50.0-59.9, adult; N18.4 Chronic kidney disease, stage 4 (severe); E66.2 Morbid (severe) obesity with alveolar hypoventilation; G47.00 Insomnia, unspecified; E78.5 Hyperlipidemia, unspecified; N18.30 Chronic kidney disease, stage 3 unspecified; E11.22 Type 2 diabetes mellitus with diabetic chronic kidney disease; D63.1 Anemia in chronic kidney disease; K59.00 Constipation, unspecified; R00.0 Tachycardia, unspecified; Z99.2 Dependence on renal dialysis; Z79.899 Other long term (current) drug therapy; Z79.82 Long term (current) use of aspirin; Z79.4 Long term (current) use of insulin; Z79.51 Long term (current) use of inhaled steroids; Z98.890 Other specified postprocedural states; Z90.49 Acquired absence of other specified parts of digestive tract; Z82.49 Family history of ischemic heart disease and other diseases of the circulatory system; Z83.3 Family history of diabetes mellitus; Z87.891 Personal history of nicotine dependence; G47.33 Obstructive sleep apnea (adult) (pediatric); E11.9 Type 2 diabetes mellitus without complications; K21.9 Gastro-esophageal reflux disease without esophagitis; R51.9 Headache, unspecified; G47.10 Hypersomnia, unspecified; E66.9 Obesity, unspecified; R06.83 Snoring; R35.1 Nocturia; I25.10 Atherosclerotic heart disease of native coronary artery without angina pectoris; R53.83 Other fatigue; R06.02 Shortness of breath; I51.7 Cardiomegaly
CPT/HCPCS: 36415; 36416; 71045; 71046; 71250; 76770; 78451; 80048; 80053; 81001; 82040; 82570; 83520; 83735; 83880; 84155; 84156; 84484; 85025; 85027; 85379; 85730; 86037; 86038; 86200; 86225; 86580; 86704; 86706; 86803; 87340; 90935; 93005; 93010; 93306; 93798; 93970; 94640; 94760; 95800; 96372; 96374; A6258; A9540; C1750; C1751; G0257; J0171; J0360; J0665; J0692; J1642; J1644; J1650; J1815; J1940; J2001; J2250; J2272; J2405; J2930; J3490; J7620; P9047; Q5105